=== PATIENT | female | born 1940 | race Caucasian/White ===

== ENCOUNTER 2016-10-23 15:22 | Emergency (ER) | payer MEDICARE ==
[~2016-10-23] VITALS: Ht 165.1 cm; Wt 90.0 kg
[2016-10-23] MEDS ORDERED: SODIUM CHLORIDE 0.9% 1,000ML IVBOLUS ONE (16:00)
[2016-10-23 16:37] LABS: HEMATOCRIT 39.9 % (34.6-47.8); WHITE BLOOD COUNT 10.3 x10^3/uL (3.4-10)
[2016-10-23 16:48] LABS: BLOOD UREA NITROGEN 24 mg/dL (7-18)
[2016-10-23 16:52] LABS: ASPARTATE AMINO TRANSFERASE 488 U/L (15-37)
[2016-10-23] MEDS ORDERED: ONDANSETRON 2MG/ML, 2ML ONE (16:54)
[2016-10-23] MEDS ORDERED: MORPHINE SULFATE 4 MG/ML, 1ML ONE (16:54)
[2016-10-23] MEDS ORDERED: ONDANSETRON 2MG/ML, 2ML IVPush ONE (17:00)
[2016-10-23] MEDS ORDERED: MORPHINE SULFATE 4 MG/ML, 1ML IVPush PRN (17:00)
[2016-10-23] MEDS ORDERED: OMNIPAQUE 350 MG/ML, 100ML BOTTLE ONE (19:44)
[2016-10-23 21:49] VITALS: BP 129/78
== END 2016-10-23 21:58 | disposition home or self-care (01) ==
LOC: ED 16:30
DX: R74.0 Nonspecific elevation of levels of transaminase and lactic acid dehydrogenase [LDH] (principal); R10.11 Right upper quadrant pain; Z90.49 Acquired absence of other specified parts of digestive tract; Z90.710 Acquired absence of both cervix and uterus; Z98.84 Bariatric surgery status; Z88.0 Allergy status to penicillin; Z88.1 Allergy status to other antibiotic agents; Z88.2 Allergy status to sulfonamides
CPT/HCPCS: 36415; 74022; 74177; 80053; 81001; 83690; 85025; 87086; 96361; 96374; 96375; 99285; J2405; J7030; Q9967

== ENCOUNTER → 2016-12-31 | Outpatient (CLI) | payer MEDICARE ==
[~2016-12-31] MED LIST: ALPR0.254 PO; AMIT25TA PO; ATEN25TA PO; BACI1CAP PO; CELE200C PO; CHOL10003 PO; DULO30CA2 PO; ESTR1TAB15 PO; FLUT9.9S NS; FURO20TA3 PO; GABA-826 PO; LEVO75TA5 PO; LOVA10TA PO; OMEP-110 PO; POTA8TAB PO; TRAM50TA2 PO; ZOLP-413 PO; calcium PO; vitamin d3 PO
[2016-12-31 14:26] LABS: ASPARTATE AMINO TRANSFERASE 24 U/L (15-37); BLOOD UREA NITROGEN 28 mg/dL (7-18)
== END | disposition home or self-care (01) ==
LOC: STAR 12:35
PROVIDERS: ATTEND Internal Medicine
DX: Z01.818 Encounter for other preprocedural examination (principal); R10.11 Right upper quadrant pain; M19.90 Unspecified osteoarthritis, unspecified site; F32.9 Major depressive disorder, single episode, unspecified; F41.9 Anxiety disorder, unspecified
CPT/HCPCS: 36415; 80053; 93005

== ENCOUNTER 2017-01-08 07:06 | Day surgery (SDC) | payer MEDICARE ==
[~2017-01-08] VITALS: Ht 165.1 cm; Wt 93.7 kg
[2017-01-08 07:33] VITALS: BP 118/72
[2017-01-08] MEDS ORDERED: LACTATED RINGERS 1,000 ML IV SCH (07:35)
[2017-01-08] MEDS ORDERED: LIDOCAINE 1%, 2ML ONE (07:41)
[2017-01-08] MEDS ORDERED: LIDOCAINE 1%, 2ML SQ PRN (08:00)
[2017-01-08] MEDS ORDERED: DEXTROSE 50%, 50ML SYRINGE ONE ×2 (08:54→09:00)
[2017-01-08] MEDS ORDERED: ROCURONIUM 10 MG/ML,10ML ONE (08:58)
[2017-01-08] MEDS ORDERED: PROPOFOL 10 MG/ML, 20ML ONE (08:58)
[2017-01-08] MEDS ORDERED: SUCCINYLCHOLINE 20 MG/ML, 10ML ONE (08:58)
[2017-01-08] MEDS ORDERED: LABETALOL 5MG/ML, 20ML IV PRN (09:00)
[2017-01-08] MEDS ORDERED: FENTANYL PF 100 MCG/2ML IV PRN (09:00)
[2017-01-08] MEDS ORDERED: HYDROmorphone 1 MG/ML, 1ML IV PRN (09:00)
[2017-01-08] MEDS ORDERED: ALBUTEROL SULFATE 2.5 MG/3 ML NPPB PRN (09:00)
[2017-01-08] MEDS ORDERED: DEXAMETHASONE 4 MG/ML, 1ML ONE ×2 (09:00→09:20)
[2017-01-08] MEDS ORDERED: ACETAMINOPHEN 325 MG TABLET PO PRN (09:00)
[2017-01-08] MEDS ORDERED: METOPROLOL 1 MG/ML, 5ML IV PRN (09:00)
[2017-01-08] MEDS ORDERED: EPHEDRINE 50 MG/ML, 1ML IVPush PRN (09:00)
[2017-01-08] MEDS ORDERED: DEXTROSE 50%, 50ML SYRINGE IVPush ONE (09:00)
[2017-01-08] MEDS ORDERED: HYDROcodone/APAP 7.5-325MG/15ML UDC PO PRN (09:00)
[2017-01-08] MEDS ORDERED: hydrALAzine 20 MG/ML, 1ML IV PRN (09:00)
[2017-01-08] MEDS ORDERED: MIDAZOLAM 1 MG/ML, 2ML IV PRN (09:00)
[2017-01-08] MEDS ORDERED: OXYcodone 5 MG/5 ML ORAL.SOL UDC PO PRN (09:00)
[2017-01-08] MEDS ORDERED: ONDANSETRON 2MG/ML, 2ML IVPush PRN (09:00)
[2017-01-08] MEDS ORDERED: FENTANYL PF 100 MCG/2ML ONE (09:01)
[2017-01-08] MEDS ORDERED: MIDAZOLAM 1 MG/ML, 2ML ONE (09:01)
[2017-01-08] MEDS ORDERED: ONDANSETRON 2MG/ML, 2ML ONE ×2 (09:21)
[2017-01-08] MEDS ORDERED: SIMETHICONE DROPS 40 MG/0.6 ML BOTTLE ONE (09:27)
[2017-01-08] MEDS ORDERED: EPHEDRINE 50 MG/ML, 1ML ONE (09:46)
== END 2017-01-08 12:15 ==
LOC: OUT 07:06
PROVIDERS: ATTEND Internal Medicine
DX: K25.9 Gastric ulcer, unspecified as acute or chronic, without hemorrhage or perforation (principal); K31.89 Other diseases of stomach and duodenum; Z98.0 Intestinal bypass and anastomosis status; Z88.0 Allergy status to penicillin
CPT/HCPCS: 43239; 82962; 88305; J0330; J1100; J2250; J2405; J2704; J3010; J3490; J7120

== ENCOUNTER → 2017-04-30 | Outpatient (CLI) | payer MEDICARE | LOC: CFH 12:22 | PROVIDERS: ATTEND Nurse Practitioner Primary Care | DX: M48.02 Spinal stenosis, cervical region (principal); M47.892 Other spondylosis, cervical region; J45.909 Unspecified asthma, uncomplicated; R10.11 Right upper quadrant pain; M79.609 Pain in unspecified limb; E03.9 Hypothyroidism, unspecified; E78.5 Hyperlipidemia, unspecified; F41.9 Anxiety disorder, unspecified; F32.89 Other specified depressive episodes; G47.09 Other insomnia; K21.9 Gastro-esophageal reflux disease without esophagitis; R60.9 Edema, unspecified; M19.90 Unspecified osteoarthritis, unspecified site; M25.569 Pain in unspecified knee; E55.9 Vitamin D deficiency, unspecified; Z79.899 Other long term (current) drug therapy; G43.909 Migraine, unspecified, not intractable, without status migrainosus | CPT/HCPCS: 72050 ==

== ENCOUNTER → 2017-10-30 | Outpatient (CLI) | payer MEDICARE | END | disposition home or self-care (01) | LOC: CFH 11:49 | PROVIDERS: ATTEND Physician Assistant | DX: M25.571 Pain in right ankle and joints of right foot (principal); M79.89 Other specified soft tissue disorders; E78.5 Hyperlipidemia, unspecified; E03.9 Hypothyroidism, unspecified; F41.9 Anxiety disorder, unspecified; G47.09 Other insomnia; K21.9 Gastro-esophageal reflux disease without esophagitis; M19.90 Unspecified osteoarthritis, unspecified site; G43.909 Migraine, unspecified, not intractable, without status migrainosus; Z79.890 Hormone replacement therapy ==

== ENCOUNTER 2018-12-24 14:18 | Emergency (ER) | payer MEDICARE ==
[~2018-12-24] VITALS: Ht 165.1 cm; Wt 92.6 kg
--- NOTE | 2018-12-24 14:31 | NUR ---
C-collar in place from triage to ED room.
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
--- NOTE | 2018-12-24 14:58 | NUR ---
PT SITTING ON [facility], COMPLETING DOCUMENT. C-COLLAR WAS REMOVED PER ERP. XR AT BS.
[2018-12-24] MEDS ORDERED: DICL100G29 TP (15:38)
[2018-12-24] MEDS ORDERED: SERT-238 PO (15:38)
[2018-12-24] MEDS ORDERED: METH500T7 PO (15:39)
--- NOTE | 2018-12-24 16:19 | NUR ---
PT SITTING ON GURNEY, USING iPAD; AWAITING TEST RESULTS.
[2018-12-24 17:26] VITALS: BP 125/69
== END 2018-12-24 17:28 | disposition home or self-care (01) ==
LOC: ED 16:59
DX: M54.12 Radiculopathy, cervical region (principal); V89.2XXA Person injured in unspecified motor-vehicle accident, traffic, initial encounter; Y93.89 Activity, other specified; Y92.89 Other specified places as the place of occurrence of the external cause; Y99.8 Other external cause status
CPT/HCPCS: 71045; 72125; 99284